=== PATIENT | male | born 1955 | race Caucasian/White ===

== ENCOUNTER 2025-08-27 08:20 | Inpatient (IN) ==
--- NOTE | 2025-08-02 11:31 | PAT Medication Instructions ---
Medication Instructions Date of Service August 02, 2025 Home Medications ascorbic acid (vitamin C) 1,000 mg tablet (Vitamin C) 1,000 mg PO QAM celecoxib 200 mg capsule (Celebrex) 200 mg PO BID PRN Pain cholecalciferol (vitamin D3) 125 mcg (5,000 unit) tablet (Vitamin D3) 125 mcg PO QAM gabapentin 300 mg capsule 600 mg PO HS omeprazole 20 mg delayed release,disintegrating tablet 20 mg PO QAM simvastatin 20 mg tablet 20 mg PO QAM ASK your surgeon for instructions celecoxib 200 mg capsule (Celebrex) 200 mg PO BID PRN Pain DO NOT take the morning of surgery ascorbic acid (vitamin C) 1,000 mg tablet (Vitamin C) 1,000 mg PO QAM cholecalciferol (vitamin D3) 125 mcg (5,000 unit) tablet (Vitamin D3) 125 mcg PO QAM Take morning of surgery With a small sip of water, OTHERWISE NOTHING TO EAT OR DRINK AFTER MIDNIGHT: omeprazole 20 mg delayed release,disintegrating tablet 20 mg PO QAM simvastatin 20 mg tablet 20 mg PO QAM Take evening before surgery gabapentin 300 mg capsule 600 mg PO HS Other Notes If you have any questions please call us at [phone] or [phone] or [phone] or [phone]
--- NOTE | 2025-08-07 10:27 | Anesthesiology Consultation ---
Date of Service August 07, 2025 Assessment & Plan (1) Encounter for pre-operative examination: - surgeon ordered medical clearance 08/19/25: "...lumbar decompression and fusion...woke up with a scratchy throat...denies cough, fever...uri-covid/flu testing in office today negative...cleared for surgery..." I will contact patient 08/26 to check on symptom status. - PONV: patient reports vomiting for several days after lumbar surgery, no post-op nausea and vomiting after [facility] 2023 shoulder surgery. - 2023 right shoulder arthroscopy received Zofran: LMA. - awaiting surgeon ordered medical clearance, Nichole Weber [place] KATELYNN 08/19/25. Patient requests PAT testing be faxed to Dr. Dariel Warner, pain management in [place]. Chart Review Chart Review: Patient seen in Pre Admission Testing Teaching & Discussion Pre-Anesthesia Teaching/Discussion Notes: Instructed NPO after midnight before surgery, except medications with 15 cc of water. Medication instructions provided according to the PAT guidelines. History Surgery Operation Date: 08/27/25 07:45 Proposed Procedures p L2-L3 Decompression, L3-S1 Revision Fusion, L2-S1 Fusion - Jono León, Height/Weight Height: 5 ft 7 in Weight: 108.3 kg Allergies Allergy/AdvReac Type Severity Reaction Status Date / Time amoxicillin Allergy Rash Verified 08/02/25 07:36 morphine AdvReac Mild I GOT REAL Verified 08/02/25 07:36 HOT Medications Home Medications Medication Instructions Recorded Confirmed Last Taken ascorbic acid (vitamin C) 1,000 mg 1,000 mg PO QAM 08/02/25 08/02/25 Unknown tablet (Vitamin C) celecoxib 200 mg capsule (Celebrex) 200 mg PO BID PRN Pain 08/02/25 08/02/25 Unknown cholecalciferol (vitamin D3) 125 125 mcg PO QAM 08/02/25 08/02/25 Unknown mcg (5,000 unit) tablet (Vitamin D3) gabapentin 300 mg capsule 600 mg PO HS 08/02/25 08/02/25 Unknown omeprazole 20 mg delayed 20 mg PO QAM 08/02/25 08/02/25 Unknown release,disintegrating tablet simvastatin 20 mg tablet 20 mg PO QAM 08/02/25 08/02/25 Unknown Past Medical History Medical History (Updated 08/07/25 @ 11:15 by Kirstie Haddad PA-C) Heartburn controlled, stable per pt History of blood transfusion (~1982) GI bleed during excision of large colon polyp HLD (hyperlipidemia) Hx of colonic polyp Hx of melanoma of skin Nausea and vomiting after administration of anesthetic agent Sleep-disordered breathing snoring and witnessed apneas per -no previous sleep studies Patient denies h/o stroke, seizures, heart attack, heart failure, DM, HTN, or blood clots/DVTs. 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 History of intestinal surgery to remove large colon polyp History of total right hip arthroplasty Hx of colonoscopy (2020) Hx of laminectomy L3-S1, ~2020 or 2021 Hx of melanoma excision side of face Hx of repair of rotator cuff right x2 Past Anesthesia History No Hx of Anesthesia Complications and No Family Hx of Anesthesia Complications History of PONV No Hx of Motion Sickness and History of PONV Social History Smoking Status: Former smoker Do You Dip or Chew Tobacco: Yes (advised) Smoking End Date: 50 years ago Hx Alcohol Use: Yes alcohol intake frequency: holidays/special occasions only Hx Substance Use: No substance use type: does not use Review of Systems Patient denies chest pain, shortness of breath, dyspnea on exertion, fever, chills, cough, wheezing, or palpitations. Physical Exam Vital Signs Vitals BP 112/71 P 95 TEMP 97.6 SP02 95% on RA RESP 18 Physical Patient resting comfortably in chair in no acute distress, alert and oriented, responding appropriately throughout visit Full cervical extension range of motion without pain TMD 3 finger breadths Mallampati Score 3 Dentition: front upper crowns, denies chipped or loose teeth, caps, implants or bridges Lungs: normal respiratory effort. Good air movement, clear throughout to auscultation, no adventitious breath sounds Cardiac: regular rate and rhythm, no murmurs noted Carotid arteries: negative bruit bilat Lab Results Anesthesia Preop Results Results Anesthesia Widget: WBC 10.53 K/ul (4.8-10.8) 08/07/25 Hgb 15.7 g/dl (14.0-18.0) 08/07/25 Hct 45.7 % (42.0-52.0) 08/07/25 Plt 201 K/uL (130-400) 08/07/25 Na 136 mmol/L (136-145) 08/07/25 K 3.7 mmol/L (3.5-5.1) 08/07/25 Cl 106 mmol/L (98-107) 08/07/25 CO2 24 mmol/L (21-32) 08/07/25 BUN 18 mg/dl (6-23) 08/07/25 Creat 0.96 mg/dl (0.6-1.4) 08/07/25 Glucose Level 120 mg/dl (70-99(Fasting)) H 08/07/25 PT 11.0 Seconds (9.0-12.0) 08/07/25 PTT 29 Seconds (21-31) 08/07/25 INR 1.0 (0.9-1.1) 08/07/25 Urine Color Dark Yellow 08/07/25 Urine Appearance Clear (Clear) 08/07/25 Urine pH 5.5 (4.5-7.5) 08/07/25 Urine Specific [place] 1.039 (1.000-1.030) H 08/07/25 Urine Protein Trace (Negative) H 08/07/25 Urine Glucose (UA) Negative (Negative) 08/07/25 Urine Ketones 1+ (Negative) H 08/07/25 Urine Blood Negative (Negative) 08/07/25 Urine Nitrite Negative (Negative) 08/07/25 Urine Bilirubin Negative (Negative) 08/07/25 Urine Urobilinogen Negative (Negative) 08/07/25 Urine Leukocyte Esterase Trace (Negative) H 08/07/25 Urine WBC (Auto) 0-5 /hpf (0-5) 08/07/25 Urine RBC (Auto) 6-10 /hpf (0-2) H 08/07/25 Urine Hyaline Casts (Auto) 6-10 /lpf (0-2) H 08/07/25 Urine Epithelial Cells (Auto) 0-2 /hpf (0-2) 08/07/25 Urine Bacteria (Auto) None Seen (None Seen) 08/07/25 Blood Type O Positive 08/07/25 Antibody Screen NEGATIVE 08/07/25 Testing Electrocardiogram Date: 08/07/25 NSR, rate 92 bpm Left anterior fascicular block Incomplete RBBB Chest X-Ray Date: 08/07/25 Heart size and pulmonary vasculature are normal. No consolidation or pleural effusion. IMPRESSION: No acute findings.
[2025-08-27] MEDS: LR 15ML/HR IV SCH (08:52)
[2025-08-27] MEDS: CeleBREX 200 MG CAP PO SCH ×2 (09:12→09:14)
[2025-08-27] MEDS: ACETAMINOPHEN 500 MG TAB PO SCH ×2 (09:12→09:14)
[2025-08-27] MEDS: GABAPENTIN 300 MG CAP PO SCH ×3 (09:12→21:12)
[2025-08-27] MEDS: LR 60ML/HR IV SCH ×2 (09:13→09:15)
[2025-08-27] MEDS ORDERED: DEXAMETHASONE SOD INJ 4 MG/ML VIAL ONE (09:29)
[2025-08-27] MEDS ORDERED: LIDOCAINE 2% 2 ML VIAL/AMP(20MG/ML) INFIL ONE (09:29)
[2025-08-27] MEDS ORDERED: KETAMINE HCL 10MG/ML SYR ONE (09:29)
[2025-08-27] MEDS ORDERED: MIDAZOLAM HCL 1 MG/ML 2ML VIAL ONE (09:29)
[2025-08-27] MEDS ORDERED: SUGAMMADEX SODIUM 200 MG/2 ML VIAL IV ONE (09:29)
[2025-08-27] MEDS ORDERED: PROPOFOL IV EMULSION 10 MG/ML 20 ML VIAL IV ONE ×4 (09:29→13:22)
[2025-08-27] MEDS ORDERED: ONDANSETRON INJ 2 MG/ML 2 ML VIAL ONE ×2 (09:29→13:52)
[2025-08-27] MEDS: SCOPOLAMINE 1 MG/72 HR TDSY PATCH TD ONE ×2 (10:15→16:29)
[2025-08-27] MEDS ORDERED: ATROPINE SULFATE 0.1 MG/ML 10ML SYR IV PRN (10:19)
--- NOTE | 2025-08-27 10:19 | Anesthesiology Consultation ---
Date of Service August 27, 2025 Assessment & Plan Chart Review Chart Review: Acceptable Risk for Surgery and Patient NOT seen in Pre Admission Testing Consults Requested none ASA ASA2 Proposed Anesthesia Anesthesia Type: General Risk / Benefits Reviewed With: PT / POA / Parent / Guardian, Accepts Plan and Informed Consent Obtained History Surgery Operation Date: 08/27/25 10:05 Proposed Procedures p L2-L3 Decompression, L2-S1 Fusion, L3-S1 Fusion Revision - Jono León, Height/Weight Height: 5 ft 7 in Weight: 106.7 kg Allergies Allergy/AdvReac Type Severity Reaction Status Date / Time amoxicillin Allergy Rash Verified 08/27/25 08:22 morphine AdvReac Mild I GOT REAL Verified 08/27/25 08:22 HOT Medications Home Medications Medication Instructions Recorded Confirmed Last Taken ascorbic acid (vitamin C) 1,000 mg 1,000 mg PO QAM 08/02/25 08/27/25 08/26/25 07:00 tablet (Vitamin C) celecoxib 200 mg capsule (Celebrex) 200 mg PO BID PRN Pain 08/02/25 08/27/25 08/26/25 07:00 cholecalciferol (vitamin D3) 125 125 mcg PO QAM 08/02/25 08/27/25 08/26/25 07:00 mcg (5,000 unit) tablet (Vitamin D3) gabapentin 300 mg capsule 600 mg PO HS 08/02/25 08/27/25 08/26/25 21:00 omeprazole 20 mg delayed 20 mg PO QAM 08/02/25 08/27/25 08/27/25 05:30 release,disintegrating tablet simvastatin 20 mg tablet 20 mg PO QAM 08/02/25 08/27/25 08/27/25 05:30 benzonatate 200 mg PO TID 08/27/25 08/27/25 08/26/25 07:00 doxycycline hyclate 100 mg PO BID Precaution per 08/27/25 08/27/25 08/26/25 07:00 patient Active Medications Generic Name Dose Route Start Last Admin Trade Name Freq PRN Reason Stop Dose Admin Acetaminophen 1,000 mg 08/27/25 06:00 08/27/25 09:14 Acetaminophen 500 Mg Tab PO 08/27/25 18:00 1,000 mg PREOP SHARIFA Administration Celecoxib 200 mg 08/27/25 06:00 08/27/25 09:14 Celebrex 200 Mg Cap PO 08/27/25 18:00 200 mg PREOP SHARIFA Administration Gabapentin 300 mg 08/27/25 06:00 08/27/25 09:15 Gabapentin 300 Mg Cap PO 08/27/25 18:00 300 mg PREOP SHARIFA Administration Lactated Ringer's 1,000 mls @ 15 mls/hr 08/28/25 06:00 08/27/25 08:52 Lr IV 08/29/25 05:59 15 mls/hr .Q24H SHARIFA Administration Lactated Ringer's 1,000 mls @ 60 mls/hr 08/27/25 06:00 08/27/25 09:15 Lr IV 08/27/25 22:39 Not Given .[id number] SHARIFA NPO Date Last Intake of Fluids: 08/27/25 Time Last Intake of Fluids: 05:30 Last Intake of Fluids Comment: Sip with med Date Last Intake of Solids: 08/26/25 Past Medical History Medical History (Updated 08/07/25 @ 11:15 by Kirstie Haddad PA-C) Sleep-disordered breathing snoring and witnessed apneas per -no previous sleep studies History of blood transfusion (~1982) GI bleed during excision of large colon polyp Hx of colonic polyp Hx of melanoma of skin Heartburn controlled, stable per pt HLD (hyperlipidemia) Nausea and vomiting after administration of anesthetic agent Past Surgical History Surgical History (Updated 08/07/25 @ 11:14 by Kirstie Haddad PA-C) Hx of laminectomy L3-S1, ~2020 or 2021 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 right hip arthroplasty Hx of repair of rotator cuff right x2 History of intestinal surgery to remove large colon polyp History of esophagogastroduodenoscopy (EGD) Hx of colonoscopy (2020) Hx of melanoma excision side of face Past Anesthesia History No Hx of Anesthesia Complications and No Family Hx of Anesthesia Complications History of PONV No Hx of Motion Sickness, Other and History of PONV Social History Smoking Status: Former smoker Do You Dip or Chew Tobacco: Yes (advised) Smoking End Date: 50 years ago Hx Alcohol Use: Yes alcohol intake frequency: holidays/special occasions only Hx Substance Use: No substance use type: does not use Review of Systems ROS Unobtainable: All systems reviewed & are unremarkable except as noted in HPI & below Physical Exam Vital Signs Last Vital Signs Temp 36.6 C 08/27/25 08:35 Pulse 74 08/27/25 08:35 Resp 17 08/27/25 08:35 BP 144/95 H 08/27/25 08:35 Pulse Ox 95 08/27/25 08:35 O2 Del Method Room Air 08/27/25 08:35 ENMT Mouth: no TMJ abnormality Thyromental Distance: > or= 3.5 Finger Breadths Mallampati Class: II Neck normal visual inspection and trachea midline; neck extension not limited Respiratory normal respiratory effort Auscultation: lungs clear to auscultation bilaterally Cardiovascular Rate/Rhythm: regular rate and regular rhythm Heart Sounds: no murmur Musculoskeletal Spine: normal cervical ROM Extremities: full ROM of extremities Neurologic moves all extremities Psychiatric Orientation: alert and oriented x 3 Testing Laboratory Results Blood Type O Positive 08/27/25 08:37 Antibody Screen NEGATIVE 08/27/25 08:37
--- NOTE | 2025-08-27 10:29 | History & Physical Bridge Note ---
Date of Service August 27, 2025 History & Physical Bridge Note I have examined the patient, reviewed the History & Physical and in the interval since the performance of the History & Physical I have noted the following changes of clinical significance: no changes noted
--- NOTE | 2025-08-27 10:30 | History & Physical Report ---
Date of Service August 27, 2025 Assessment & Plan (1) Multilevel lumbosacral spondylosis with radiculopathy: Plan: L2-L3 decompression revision fusion L3-S1 fusion L2-S1 History of Present Illness Chief Complaint: Back and leg pain Primary Care Provider: Alyson Weber This is a 70-year-old male who presents with chronic persistent back and leg pain after failing course of nonoperative care is here for surgical invention. Allergies Allergy/AdvReac Type Severity Reaction Status Date / Time amoxicillin Allergy Rash Verified 08/27/25 08:22 morphine AdvReac Mild I GOT REAL Verified 08/27/25 08:22 HOT Home Medications Medication Instructions Recorded Confirmed Type ascorbic acid (vitamin C) 1,000 mg 1,000 mg PO QAM 08/02/25 08/27/25 History tablet (Vitamin C) celecoxib 200 mg capsule (Celebrex) 200 mg PO BID PRN Pain 08/02/25 08/27/25 History cholecalciferol (vitamin D3) 125 125 mcg PO QAM 08/02/25 08/27/25 History mcg (5,000 unit) tablet (Vitamin D3) gabapentin 300 mg capsule 600 mg PO HS 08/02/25 08/27/25 History omeprazole 20 mg delayed 20 mg PO QAM 08/02/25 08/27/25 History release,disintegrating tablet simvastatin 20 mg tablet 20 mg PO QAM 08/02/25 08/27/25 History benzonatate 200 mg PO TID 08/27/25 08/27/25 History doxycycline hyclate 100 mg PO BID Precaution per 08/27/25 08/27/25 History patient Past Med/Surg History Problem List (Updated 08/27/25 @ 10:29 by Jono León DO) Multilevel lumbosacral spondylosis with radiculopathy Encounter for pre-operative examination Medical History (Updated 08/27/25 @ 10:29 by Jono León DO) Sleep-disordered breathing snoring and witnessed apneas per -no previous sleep studies History of blood transfusion (~1982) GI bleed during excision of large colon polyp Hx of colonic polyp Hx of melanoma of skin Heartburn controlled, stable per pt HLD (hyperlipidemia) Nausea and vomiting after administration of anesthetic agent Surgical History (Updated 08/07/25 @ 11:14 by Kirstie Haddad PA-C) Hx of laminectomy L3-S1, ~2020 or 2021 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 right hip arthroplasty Hx of repair of rotator cuff right x2 History of intestinal surgery to remove large colon polyp History of esophagogastroduodenoscopy (EGD) Hx of colonoscopy (2020) Hx of melanoma excision side of face Social History Smoking Status: Former smoker Smoking End Date: 50 years ago; Second Hand Exposure: No; Do You Dip or Chew Tobacco: Yes (advised); Tobacco Cessation Education Requested by Patient: No Hx Alcohol Use: Yes Hx Substance Use: No Preferred Language: Mongolian Communication Ability: Effective Core Inspector Required: No Beliefs That Will Affect Care: None Current Living Situation: Spouse Other Information That Helps Us Care for You: No Feels Safe at Home: Yes Safety Concerns: Feels Safe At This Time Assistive Devices: None Physical Exam Physical Exam: Patient alert and oriented Heart regular rhythm Lungs clear Results & Data Results & Data Vital Signs (Past 12 Hours) Vital Signs Temp Pulse Resp BP Pulse Ox O2 Del Method 08/27/25 08:35 36.6 C 74 17 144/95 H 95 Room Air
[2025-08-27] MEDS ORDERED: Nursing to Pharmacy Communication SCH (10:45)
[2025-08-27] MEDS: BUPIVACAINE/EPINEPHRINE 0.25% 1:200,000 30 ML VIAL ONE (11:19)
[2025-08-27] MEDS ORDERED: ROCURONIUM BROMIDE 10 MG/ML 5 ML VIAL IV ONE ×2 (11:19→13:11)
[2025-08-27] MEDS: ceFAZolin 330 MG/ML 1 GM VIAL ONE (11:20)
[2025-08-27] MEDS ORDERED: PHENYLEPHRINE 100MCG/ML 5ML SYR ONE ×2 (12:26)
[2025-08-27] MEDS ORDERED: GLYCOPYRROLATE 0.2 MG/ML VIAL ONE (12:49)
--- NOTE | 2025-08-27 14:02 | Operative Report ---
Post Operative Report Pre & Post Diagnosis Operation Date: 08/27/25 10:05 Pre-Op Diagnosis: #1 lumbar spondylosis with radiculopathy #2 lumbar spinal stenosis Post-Op Diagnosis: Same I identified the patient and participated in the time-out.: Yes Procedure Operation Date: 08/27/25 10:05 Actual Procedures #1 revision decompression with bilateral medial facetectomies and foraminotomies L2-L3, L3-L4, L4-L5 L5-S1. #2 posterior spinal fusion L2-S1. #3 placement of posterior segmental instrumentation using camber L2-S1. #4 interbody fusion L3- L4, L4-L5 L5-S1. #5 placement of Spira 12 x 26 mm at L3-L4, 13 x 26 mm at L4-5 and 12 x 26 mm at L5-S1. #6 placement of Proteus combined with Koros bone graft in the posterior lateral gutters and os design in the interbody space. Surgeon Jono León, DO Acting Professor Janice Elizabeth Estimated Blood Loss 600 Findings See Below The patient is 5 foot 7 weighing over 106 kg with a BMI in excess of 36. The patient's body habitus, blood loss and significant epidural scarring at all levels created significant technical difficulty prolonging this procedure at least 50%. I am recommending a modifier 22. Specimens None Indications This is a 70-year-old male presents publish diagnosis of failing since course of nonoperative care is here for surgical invention. Description of Procedure Patient was met with identified inform consent obtained. Patient was then taken to the operative suite underwent and patient placed in a prone position on the Andrzej table atop the Shola frame. All bony prominences well-padded eyes inspected to ensure no external pressure placed upon them. This point lumbar spine was prepped and draped in normal sterile fashion. Sharp dissection with the assistance of Bovie cautery performed down to and exposing the remaining lamina and transverse processes of L2 L3-L4-L5 and sacral ala bilaterally. From a caudal to cephalad fashion revision laminectomy with foraminotomies was performed of L5 L4 L3 and partially at L2. Significant epidural scarring was noted at every level prolonging our decompression and access to the subarticular and foraminal regions for complete decompression. After this was complete pedicle screws were placed at L2 L3-L4-L5 and S1 levels bilaterally with assistance of fluoroscopy and appropriate size you contoured and placed. Bilateral transforaminal approach on the right and complete discectomy of L5-S1 was performed endplates created to subcortical bleeding bone and a 12 x 26 mm Spira cage tapped into position. Then proceeded to the L4-L5 region. Again by way of a transforaminal approach and a right complete discectomy was performed endplates created to subcortical bony bone and a 13 x 26 mm Spira cage tapped into position. Lastly approached L3-L4 and by way transforaminal approach and right complete discectomy was performed. Endplates guided to subcortical and bone. A 12 x 26 mm Spira cage was then tapped in position. Please note all cages were packed with os design bone graft. The rods were then locked into position bilaterally. The transverse processes of L2-L3 L4-5 and sacral ala burred to subcortical bleeding bone. Proteus combined with Koros bone graft was then placed in the posterior gutters. 15 round KWAME drain inserted. The incision was then closed with 1 Vicryl and fascia 2-0 Vicryl subcutaneously and 4-0 Monocryl for final skin closure. Steri-Strips sterile dressing placed. Patient waken taken PACU stable condition. Please note Janice Elizabeth was present throughout the entire procedure and brought the patient positioning complex portions of the surgery and final skin closure. I attest to the content of the Intraoperative Record and any orders documented therein. Any exceptions are noted below.
[2025-08-27] MEDS: FLOSEAL HEMOSTATIC MATRIX 10ML TOP ONE (14:07)
[2025-08-27] MEDS ORDERED: ALBUTEROL HFA 8 GM INHALER INH ONE (14:17)
--- NOTE | 2025-08-27 14:29 | Fluoroscopy Report ---
INTRAOPERATIVE RADIOGRAPHS CLINICAL HISTORY: Lumbar spinal fusion. Fluoro time: 37 seconds Ka,r: 42.74 mGy FINDINGS: 4 spot fluoroscopic views of the lumbar spine are presented. There has been discectomy at L 3-L4, L4-L5, and L5-S1 with laminectomy and posterior fusion at L2-S1. Interpedicular screws are pres ent at all levels. The orthopedic hardware appears intact. IMPRESSION: Intraoperative images from multilevel spinal fusion as above. Electronically signed by: Dave Lombardo M.D. 08/27/2025 2:27 PM
[2025-08-27] MEDS: HYDROmorphone INJ 1 MG/ML SYRINGE IV PRN (15:30)
--- NOTE | 2025-08-27 15:50 | Anesthesiology Progress Note ---
Date of Service August 27, 2025 Anesthesia Post Procedure Vital Signs Vital Signs: Temp Pulse Resp BP Pulse Ox O2 Del Method O2 Flow Rate 08/27/25 15:40 87 21 107/88 93 Nasal Cannula 3 08/27/25 15:30 82 17 104/70 97 Nasal Cannula 3 08/27/25 15:20 82 18 121/83 91 Nasal Cannula 3 08/27/25 15:10 36.4 C L 86 16 128/74 93 Nasal Cannula 3 08/27/25 15:00 84 10 L 130/79 94 Nasal Cannula 3 08/27/25 14:50 88 17 113/81 95 Nasal Cannula 3 08/27/25 14:40 91 H 15 119/79 98 Room Air 08/27/25 14:30 98 H 20 127/71 96 Nasal Cannula 9 08/27/25 14:24 36.0 C L 106 H 17 137/95 90 Oxymask 9 08/27/25 08:35 36.6 C 74 17 144/95 H 95 Room Air Pain Intensity Back: Pain Intensity: 6 Transfer of Care Handoff Completed per policy Notes Mental Status: alert / awake / arousable Patient Amnestic to Procedure: Yes Nausea / Vomiting: adequately controlled Pain: adequately controlled Airway Patency, RR, SpO2: stable & adequate BP & HR: stable & adequate Hydration State: stable & adequate Anesthetic Complications: no major complications apparent
[2025-08-27] MEDS ORDERED: ACETAMINOPHEN 500 MG TAB PO PRN (16:20)
[2025-08-27] MEDS ORDERED: ACETAMINOPHEN 1,000 MG/100 ML VIAL IV PRN (16:20)
[2025-08-27] MEDS ORDERED: diphenhydrAMINE Capsule 25 MG CAP PO PRN (16:20)
[2025-08-27] MEDS ORDERED: ONDANSETRON INJ 2 MG/ML 2 ML VIAL IV PRN (16:20)
[2025-08-27] MEDS ORDERED: HYDROmorphone INJ 1 MG/ML SYRINGE IV PRN (16:20)
[2025-08-27] MEDS ORDERED: DO NOT ADMINISTER PNEUMOCOCCAL VACCINE PRN (16:20)
[2025-08-27] MEDS ORDERED: ONDANSETRON 4 MG OD TAB PO PRN (16:20)
[2025-08-27] MEDS ORDERED: LORazepam 0.5 MG TAB PO PRN (16:20)
[2025-08-27] MEDS ORDERED: DO NOT ADMINISTER FLU VACCINE PRN (16:20)
[2025-08-27] MEDS ORDERED: HYDROmorphone INJ 0.5 MG/0.5 ML SYR IV PRN (16:20)
[2025-08-27] MEDS ORDERED: MAGNESIUM HYDROXIDE SUSP 30 ML UDC PO PRN (16:20)
[2025-08-27] MEDS ORDERED: METOCLOPRAMIDE HCL INJ 5 MG/ML 2 ML VIAL IV PRN (16:20)
[2025-08-27] MEDS ORDERED: NALOXONE HCL 0.4 MG/1 ML VIAL/CARP IV PRN (16:20)
[2025-08-27] MEDS ORDERED: ALUMINUM/MAGNESIUM SUSP 30 ML UDC PO PRN (16:20)
[2025-08-27] MEDS ORDERED: SOD PHOSPHATE/SOD BIPHOSPHATE ENEMA 132 ML BTL PR PRN (16:20)
[2025-08-27] MEDS ORDERED: PROMETHAZINE 12.5 MG/50.5 ML BAG IV PRN (16:20)
[2025-08-27] MEDS ORDERED: LORazepam Inj 0.5 MG in SYRINGE 0.25 ML IV PRN (16:20)
[2025-08-27] MEDS: CHECK SCOPOLAMINE PATCH PLACEMENT SCH (16:30)
[2025-08-27] MEDS: SODIUM CHLORIDE 0.9% 1,000 ML IV SCH (16:31)
--- NOTE | 2025-08-27 17:00 | Internal Medicine Consult Note ---
Date of Consultation August 27, 2025 Assessment & Plan (1) Multilevel lumbosacral spondylosis with radiculopathy: Lumbar spondylosis with radiculopathy Lumbar spinal stenosis S/P revision decompression/fusion surgery of lumbar spine by Dr. 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 León Attending Physician: Jono León, DO History of Present Illness Patient is a 71-year-old male with history of hyperlipidemia, obesity, lumbar spinal stenosis, vitamin D deficiency, GERD, former smoker and other medical problems was consulted for postop medical management. Patient underwent revision of decompression, fusion surgery of lumbar spine for lumbar spondylosis with radiculopathy and spinal stenosis by Dr. León on 08/27/2025. Patient is mildly drowsy post operatively. He denies any pain at surgical site. Also denies any chest pain, dyspnea, dizziness, change in vision, nausea, vomiting, abdominal pain, dysuria. Allergies Allergy/AdvReac Type Severity Reaction Status Date / Time amoxicillin Allergy Rash Verified 08/27/25 08:22 morphine AdvReac Mild I GOT REAL Verified 08/27/25 08:22 HOT Home Medications Medication Instructions Recorded Confirmed Type ascorbic acid (vitamin C) 1,000 mg 1,000 mg PO QAM 08/02/25 08/27/25 History tablet (Vitamin C) celecoxib 200 mg capsule (Celebrex) 200 mg PO BID PRN Pain 08/02/25 08/27/25 History cholecalciferol (vitamin D3) 125 125 mcg PO QAM 08/02/25 08/27/25 History mcg (5,000 unit) tablet (Vitamin D3) gabapentin 300 mg capsule 600 mg PO HS 08/02/25 08/27/25 History omeprazole 20 mg delayed 20 mg PO QAM 08/02/25 08/27/25 History release,disintegrating tablet simvastatin 20 mg tablet 20 mg PO QAM 08/02/25 08/27/25 History benzonatate 200 mg PO TID 08/27/25 08/27/25 History doxycycline hyclate 100 mg PO BID Precaution per 08/27/25 08/27/25 History patient Patient History Medical History Sleep-disordered breathing snoring and witnessed apneas per -no previous sleep studies History of blood transfusion (~1982) GI bleed during excision of large colon polyp Hx of colonic polyp Hx of melanoma of skin Heartburn controlled, stable per pt HLD (hyperlipidemia) Nausea and vomiting after administration of anesthetic agent Surgical History Hx of laminectomy L3-S1, ~2020 or 2021 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 right hip arthroplasty Hx of repair of rotator cuff right x2 History of intestinal surgery to remove large colon polyp History of esophagogastroduodenoscopy (EGD) Hx of colonoscopy (2020) Hx of melanoma excision side of face Social History Smoking Status: Former smoker Smoking End Date: 50 years ago; Second Hand Exposure: No; Do You Dip or Chew Tobacco: Yes (advised); Tobacco Cessation Education Requested by Patient: No Hx Alcohol Use: Yes Hx Substance Use: No Preferred Language: Sammarinese Communication Ability: Effective 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: No Beliefs That Will Affect Care: None Current Living Situation: Spouse Other Information That Helps Us Care for You: No Feels Safe at Home: Yes Safety Concerns: Feels Safe At This Time Assistive Devices: None Review of Systems Review of Systems: All systems reviewed & are unremarkable except as noted in Subjective Physical Exam Physical Exam: Physical Exam: Vitals signs as noted above General Appearance:Morbidly obese, no apparent distress Head: normocephalic, Atraumatic Eyes: normal inspection, EOMI Neck: supple, Trachea midline Respiratory/Chest: Normal breath sounds, CTA, No accessory muscle use Cardiovascular: S1, S2, No murmur Abdomen/GI:Soft, Non tender, Bowel sounds present Back: +Post surgical dressing,+drain Extremities/Musculoskeletal:normal inspection, no edema Neurologic/Psych:AAOX3, grossly no focal neurological deficits Skin: normal color, warm Results & Data Vital Signs (Past 12 Hours) Vital Signs Temp Pulse Pulse Resp BP Pulse Ox O2 Del Method 08/27/25 16:56 36.3 C L 97 H 16 112/76 97 Nasal Cannula 08/27/25 16:20 36.3 C L 91 H 16 120/82 91 Nasal Cannula 08/27/25 16:00 93 H 15 110/71 97 Nasal Cannula 08/27/25 15:50 85 14 120/74 95 Nasal Cannula 08/27/25 15:40 87 21 107/88 93 Nasal Cannula 08/27/25 15:30 82 17 104/70 97 Nasal Cannula 08/27/25 15:20 82 18 121/83 91 Nasal Cannula 08/27/25 15:10 36.4 C L 86 16 128/74 93 Nasal Cannula 08/27/25 15:00 84 10 L 130/79 94 Nasal Cannula 08/27/25 14:50 88 17 113/81 95 Nasal Cannula 08/27/25 14:40 91 H 15 119/79 98 Room Air 08/27/25 14:30 98 H 20 127/71 96 Nasal Cannula 08/27/25 14:24 36.0 C L 106 H 17 137/95 90 Oxymask 08/27/25 08:35 36.6 C 74 17 144/95 H 95 Room Air O2 Flow Rate 08/27/25 16:56 2 08/27/25 16:20 2 08/27/25 16:00 3 08/27/25 15:50 3 08/27/25 15:40 3 08/27/25 15:30 3 08/27/25 15:20 3 08/27/25 15:10 3 08/27/25 15:00 3 08/27/25 14:50 3 08/27/25 14:40 08/27/25 14:30 9 08/27/25 14:24 9 08/27/25 08:35 Diagnostic Findings --Lumbar Spinal X ray: 4 spot fluoroscopic views of the lumbar spine are presented. There has been discectomy at L3-L4, L4-L5, and L5-S1 with laminectomy and posterior fusion at L2-S1. Interpedicular screws are present at all levels. The orthopedic hardware appears intact.
[2025-08-27] MEDS: BENZONATATE 100 MG CAPSULE PO SCH (21:11)
[2025-08-27] MEDS: DOCUSATE SODIUM/SENNA 50/8.6MG TAB PO SCH (21:11)
[2025-08-28] MEDS: COUGH DROP (SUGAR FREE) LOZ 24 LOZ/1 BOX BUCCAL PRN (04:21)
[2025-08-28] MEDS: COUGH DROP (SUGAR FREE) LOZ 24 LOZ/1 BOX BUCCAL ONE (04:33)
[2025-08-28] MEDS: POLYETHYLENE (MIRALAX) 17 GM PACK PO SCH (05:50)
[2025-08-28 07:44] LABS: Hematocrit (blood only) 34.2 % (42.0-52.0); Hemoglobin 11.9 g/dl (14.0-18.0); Immature Granulocytes # (auto) 0.09 K/uL (0.01-0.20); Immature Granulocytes % (auto) 0.5 %; Mean Corpuscular Hemoglobin 32.8 pg (25.0-34.0); Mean Corpuscular Volume 94.2 fL (80.0-100.0); Platelet Count 190 K/uL (130-400); RDW Standard Deviation 41.4 fL (36.4-46.3); Red Blood Count 3.63 M/uL (4.70-6.10); White Blood Count 16.91 K/ul (4.8-10.8)
[2025-08-28 08:02] LABS: Anion Gap 4.0 (3-11); Blood Urea Nitrogen 15.0 mg/dl (6-23); Calcium 8.6 mg/dl (8.6-10.3); Carbon Dioxide 28.0 mmol/L (21-32); Chloride 107.0 mmol/L (98-107); Creatinine Clr Calc Pharmacy 86.4 ml/min; Glucose 115.0 mg/dl (70-99(Fasting)); Potassium 4.5 mmol/L (3.5-5.1); Sodium 139.0 mmol/L (136-145)
[2025-08-28] MEDS: SIMVASTATIN 20 MG TAB PO SCH (08:08)
[2025-08-28] MEDS: CHOLECALCIFEROL 125 MCG (5,000 UNITS) TAB PO SCH (08:08)
[2025-08-28] MEDS: ASCORBIC ACID 500 MG TAB PO SCH (08:08)
[2025-08-28] MEDS: dexAMETHasone 6 MG in SYRINGE 0 ML IV SCH (08:09)
--- NOTE | 2025-08-28 09:50 | Orthopedic Progress Note ---
Date of Service August 28, 2025 Assessment & Plan (1) Multilevel lumbosacral spondylosis with radiculopathy: Plan: At this time we will continue physical therapy monitor his KWAME output over the discharge home in next few days. Admission and Anticipated Discharge Date Admission Date: August 27, 2025 Subjective Back pain controlled leg pain markedly improved Physical Exam Physical Exam: Patient is in the chair at the bedside. Is comfortable. Discussed active testing. Results & Data Vital Signs (Past 12 Hours) Vital Signs Temp Pulse Pulse Resp BP BP Pulse Ox 08/28/25 08:39 18 119/72 93 08/28/25 07:20 36.6 C 104 H 16 124/77 92 08/28/25 04:15 92 H 101 H 96 08/28/25 04:00 36.3 C L 104 H 20 118/78 88 L 08/27/25 23:59 36.9 C 104 H 20 103/64 95 O2 Del Method 08/28/25 08:39 Room Air 08/28/25 07:20 Nasal Cannula 08/28/25 04:15 Nasal Cannula 08/28/25 04:00 Room Air 08/27/25 23:59 Room Air Queries Orthopedic Spine Acute Posthemorrhagic Anemia: Yes Obesity: Yes
--- NOTE | 2025-08-28 14:55 | Hospitalist Progress Note ---
Date of Service August 28, 2025 Assessment & Plan (1) Multilevel lumbosacral spondylosis with radiculopathy: Plan: Lumbar spondylosis with radiculopathy Lumbar spinal stenosis S/P revision decompression/fusion surgery of lumbar spine by Dr. 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 DVT Px: SCDs per surgery CODE STATUS Full code Admission and Anticipated Discharge Date Admission Date: August 27, 2025 Subjective Patient is seen and examined at bedside Sitting in chair during my encounter Had PT evaluation earlier today Admits to have back pain 4-5/10 at surgical site Offers no other complaints Saturating well on room air Denies any chest pain, dyspnea, nausea, vomiting, abdominal pain Review of Systems Review of Systems: All systems reviewed & are unremarkable except as noted in Subjective Physical Exam Physical Exam: Physical Exam: Vitals signs as noted above General Appearance:Morbidly obese, no apparent distress Head: normocephalic, Atraumatic Eyes: normal inspection, EOMI Neck: supple, Trachea midline Respiratory/Chest: Normal breath sounds, CTA, No accessory muscle use Cardiovascular: S1, S2, No murmur Abdomen/GI:Soft, Non tender, Bowel sounds present Back: +Post surgical dressing,+drain Extremities/Musculoskeletal:normal inspection, no edema Neurologic/Psych:AAOX3, grossly no focal neurological deficits Skin: normal color, warm Results & Data Results & Data Vital Signs (Past 12 Hours) Vital Signs Temp Pulse Pulse Resp BP BP Pulse Ox 08/28/25 11:35 36.7 C 94 H 18 123/72 95 08/28/25 08:39 18 119/72 93 08/28/25 07:35 08/28/25 07:20 36.6 C 104 H 16 124/77 92 08/28/25 04:15 92 H 101 H 96 08/28/25 04:00 36.3 C L 104 H 20 118/78 88 L O2 Del Method O2 Flow Rate 08/28/25 11:35 Room Air 08/28/25 08:39 Room Air 08/28/25 07:35 Nasal Cannula 2 08/28/25 07:20 Nasal Cannula 08/28/25 04:15 Nasal Cannula 08/28/25 04:00 Room Air Laboratory Results Short CBC 08/28/25 Range/Units 07:19 WBC 16.91 H (4.8-10.8) K/ul Hgb 11.9 L (14.0-18.0) g/dl Hct 34.2 L (42.0-52.0) % Plt Count 190 (130-400) K/uL BMP 08/28/25 07:19 Sodium 139 Potassium 4.5 Chloride 107 Carbon Dioxide 28 BUN 15 Creatinine 0.90 Glucose 115 H Calcium 8.6
[2025-08-28] MEDS: FAMOTIDINE 20 MG TAB PO PRN (20:15)
[2025-08-29 07:34] LABS: Hematocrit (blood only) 31.8 % (42.0-52.0); Hemoglobin 10.9 g/dl (14.0-18.0); Mean Corpuscular Hemoglobin 31.7 pg (25.0-34.0); Mean Corpuscular Volume 92.4 fL (80.0-100.0); Platelet Count 164 K/uL (130-400); RDW Standard Deviation 40.9 fL (36.4-46.3); Red Blood Count 3.44 M/uL (4.70-6.10); White Blood Count 13.97 K/ul (4.8-10.8)
[2025-08-29 07:50] LABS: Anion Gap 6.0 (3-11); Blood Urea Nitrogen 15.0 mg/dl (6-23); Calcium 9.0 mg/dl (8.6-10.3); Carbon Dioxide 29.0 mmol/L (21-32); Chloride 103.0 mmol/L (98-107); Creatinine Clr Calc Pharmacy 93.7 ml/min; Glucose 100.0 mg/dl (70-99(Fasting)); Potassium 4.3 mmol/L (3.5-5.1); Sodium 138.0 mmol/L (136-145)
--- NOTE | 2025-08-29 09:56 | Orthopedic Progress Note ---
Date of Service August 29, 2025 Assessment & Plan (1) Multilevel lumbosacral spondylosis with radiculopathy: Plan: Julio is postoperative day 2 status post revision decompression and fusion L2-S1. Will continue with physical therapy and ambulation. DVT prophylaxis is in the form teds and SCDs. Work on aggressive bowel regimen. Maintain KWAME drain. Anticipate discharge home tomorrow Admission and Anticipated Discharge Date Admission Date: August 27, 2025 Subjective Julio is postoperative day 2 status post revision decompression and fusion L2-S1. Leg symptoms are greatly improved. KWAME drain output last shift was 60 cc. Yesterday in physical therapy ambulate 175 feet plus the hallways. No new complaints. Review of Systems Review of Systems: All systems reviewed & are unremarkable except as noted in HPI & below Physical Exam Physical Exam: He is resting in bed in no acute distress he has been examined by Dr. León as well Alert and oriented x 3 Lumbar dressing is clean dry intact with functioning KWAME drain strength intact bilateral lower extremities Results & Data Vital Signs (Past 12 Hours) Vital Signs Temp Pulse Resp BP Pulse Ox O2 Del Method 08/29/25 07:20 Room Air 08/29/25 07:07 36.6 C 89 18 150/89 H 95 Room Air 08/28/25 23:31 36.4 C L 92 H 16 153/69 H 95 Room Air Queries Orthopedic Spine Acute Posthemorrhagic Anemia: Yes Obesity: Yes
--- NOTE | 2025-08-29 14:40 | Hospitalist Progress Note ---
Date of Service August 29, 2025 Assessment & Plan (1) Multilevel lumbosacral spondylosis with radiculopathy: Plan: Lumbar spondylosis with radiculopathy Lumbar spinal stenosis S/P revision decompression/fusion surgery of lumbar spine by Dr. 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 DVT Px: SCDs per surgery CODE STATUS Full code Admission and Anticipated Discharge Date Admission Date: August 27, 2025 Subjective Patient is seen and examined at bedside Back pain is controlled with medications Ambulating in hallway with no issues Denies any chest pain, dyspnea, nausea, vomiting, abdominal pain Review of Systems Review of Systems: All systems reviewed & are unremarkable except as noted in Subjective Physical Exam Physical Exam: Physical Exam: Vitals signs as noted above General Appearance:Morbidly obese, no apparent distress Head: normocephalic, Atraumatic Eyes: normal inspection, EOMI Neck: supple, Trachea midline Respiratory/Chest: Normal breath sounds, CTA, No accessory muscle use Cardiovascular: S1, S2, No murmur Abdomen/GI:Soft, Non tender, Bowel sounds present Back: +Post surgical dressing,+drain Extremities/Musculoskeletal:normal inspection, no edema Neurologic/Psych:AAOX3, grossly no focal neurological deficits Skin: normal color, warm Results & Data Results & Data Vital Signs (Past 12 Hours) Vital Signs Temp Pulse Resp BP Pulse Ox O2 Del Method 08/29/25 07:20 Room Air 08/29/25 07:07 36.6 C 89 18 150/89 H 95 Room Air Laboratory Results Short CBC 08/29/25 Range/Units 06:55 WBC 13.97 H (4.8-10.8) K/ul Hgb 10.9 L (14.0-18.0) g/dl Hct 31.8 L (42.0-52.0) % Plt Count 164 (130-400) K/uL BMP 08/29/25 06:55 Sodium 138 Potassium 4.3 Chloride 103 Carbon Dioxide 29 BUN 15 Creatinine 0.83 Glucose 100 H Calcium 9.0
[2025-08-30] MEDS ORDERED: REMOVE TRANSDERM-SCOP PATCH ONE (06:00)
[2025-08-30 07:10] VITALS: BP 138/80; PULSE 94; RESP 18; TEMP 97.5; O2SAT 94
[2025-08-30 08:18] LABS: Hematocrit (blood only) 30.9 % (42.0-52.0); Hemoglobin 11.0 g/dl (14.0-18.0); Mean Corpuscular Hemoglobin 33.0 pg (25.0-34.0); Mean Corpuscular Volume 92.8 fL (80.0-100.0); Platelet Count 163 K/uL (130-400); RDW Standard Deviation 40.3 fL (36.4-46.3); Red Blood Count 3.33 M/uL (4.70-6.10); White Blood Count 15.69 K/ul (4.8-10.8)
[2025-08-30 08:34] LABS: Anion Gap 6.0 (3-11); Blood Urea Nitrogen 17.0 mg/dl (6-23); Calcium 9.2 mg/dl (8.6-10.3); Carbon Dioxide 29.0 mmol/L (21-32); Chloride 102.0 mmol/L (98-107); Creatinine Clr Calc Pharmacy 98.4 ml/min; Glucose 107.0 mg/dl (70-99(Fasting)); Potassium 4.0 mmol/L (3.5-5.1); Sodium 137.0 mmol/L (136-145)
--- NOTE | 2025-08-30 09:41 | Discharge Summary ---
Date of Service August 30, 2025 Admission HPI Per Admitting Provider This is a 70-year-old male who presents with chronic persistent back and leg pain after failing course of nonoperative care is here for surgical invention. Principal Diagnosis Lumbar spondylosis with radiculopathy Discharge Data Allergies Allergy/AdvReac Type Severity Reaction Status Date / Time amoxicillin Allergy Rash Verified 08/27/25 08:22 morphine AdvReac Mild I GOT REAL Verified 08/27/25 08:22 HOT Consultations 08/27/25 16:20 Consult Hospitalist Routine Procedures Performed Operation Date: 08/27/25 10:05 Actual Procedures p L2-L3 Decompression, L2-S1 Fusion, L3-S1 Revision(Not Applicable) - Jono León DO Ordered Studies 08/27/25 10:05 FL lumbar spine 2-3V Routine Hospital Course (1) Multilevel lumbosacral spondylosis with radiculopathy: Patient went lumbar decompression fusion tolerated this well was taken to orthopedic for postoperative. Postop he progressed appropriately. Tolerating physical therapy. Improvement of his back and leg pain. KWAME drain decreasing appropriately. Subsidy discharged home. Discharge orders and instructions from the chart for further review. Total Time Total Time Spent Total Time Spent (In Minutes): 20 minutes Discharge Plan Discharge Items Patient Disposition: Home - Self-Care Reason For Visit: Lumbar Disc Disease with Radiculopathy, Other Spon Discharge Diagnosis: Lumbar spondylosis with radiculopathy Activity: As commented below Non-emergency contact: Primary Care Provider Call non-emergency contact if: you have any medication questions Follow-up/Referrals: Alyson Weber PA-C [Primary Care Provider] - Diet: Regular Addtl Attending Provider Instructions: ACTIVITY RECOMMENDATIONS: SELF CARE INSTRUCTIONS AFTER THORACIC/LUMBAR FUSIONS 1. You may walk to your tolerance. It is good exercise for your legs and back. Expect some back and intermittent leg aches and pains. 2. You may perform "counter-top" level activities (make a sandwich, leyla with a project, etc.). 3. No bending or lifting of more than 10 pounds or back twisting of any nature (roll like a log when turning in bed). 4. You may ride in a car for 20-30 minutes at a time. No driving until after your first visit with your doctor. 5. Frequent changes of position and restricting sitting to 30 minutes at a time will help limit the amount of back spasms and stiffness you may experience. 6. You may discontinue the use of ambulatory aids (cane, crutches, etc.) once your strength and confidence allow. 7. You may drilling fluids specialist the shower and let water strike your incision when you arrive home at least once daily. Do not take a tub bath, sit in a hot tub or go into a swimming pool until after your first recheck in the office. 8. You may resume previous diet. SPECIAL CARE INSTRUCTIONS: VERY IMPORTANT TO READ AND REVIEW A. Your surgical incision has been closed with a cosmetic suture under the skin that will dissolve in about 6 weeks. In 14 days, you can use a pair of clean scissors and cut the suture that is left outside of the skin at the ends of your incision. 1. The small skin tapes can be removed 7 days after surgery if they have not fallen off by that point. 2. You may keep the wound open to air as much as possible to promote healing after post-op day number 5 unless told otherwise by your doctor. 3. If you think the wound looks like it is becoming infected (redness or worsening drainage) and/or you are experiencing fever, chill or worsening back pain and muscle spasms, contact the office so that we may evaluate you as soon as possible. B. Complications are uncommon, but please contact us if you have any signs or symptoms of: 1. wound infection (fever higher than 102.5 degrees F, redness, separation of wound, drainage, or increasing pain from the incision) 2. blood clots in legs (pain, swelling, redness and warmth in legs) 3. urinary tract infection (fever higher than 102.5 degrees F, burning upon urination or increased frequency of urination) 4. nerve problems (inability to walk on your toes or heels, numbness, loss of bowel or bladder control) 5. any other symptoms that concern you C. Please call the office at if you have any concerns or questions about your operation or recovery. D. No smoking! Smoking drastically decreases the chance of a solid fusion. E. Do not take any anti-inflammatory medications (Indocin, Advil, Motrin, Aspirin, Naprosyn, etc.) as these may inhibit the chance of a solid fusion. T ylenol is okay to take for pain. MANAGING PAIN AFTER SPINAL SURGERY 1. Narcotic medication is intended for short-term use and will be provided for surgical pain. Surgical pain usually lasts for a period of 4-6 weeks. Narcotic medication includes Percocet, Vicodin, Darvocet, Tylenol #3 or Lortab. 2. Longer-term pain is more appropriately treated with non-narcotic medication such as Tylenol ES. 3. Muscle spasm is not appropriately treated with narcotics. Muscle relaxers such as Soma, Flexeril or Skelaxin can be used along with Tylenol ES. 4. Remember that we all live with some "aches and pains". This is not unusual or uncommon after an injury or as we get older. a. Back pain is expected and may include muscle spasms for 4 to 6 weeks after surgery. The pain should gradually improve. If the pain worsens for no apparent reason, please contact the office. b. Intermittent leg pain may also be experienced and should not be concerned about unless it worsens for no apparent reason. If so, please contact the office. 5. We will provide appropriate medication within the normal guidelines of their prescribed use. We will also be very cautious and aware of potential abuse and extended duration of patients' medication needs. a. Pain medications are for your comfort and to assist with sleep and rest so that the tissue can heal. They are not provided in order to return to normal activity and should not be used through the day. To do so or worsening pain at night can result from ongoing tissue damage and development of tolerance to the prescribed medicine. 6. Please allow 2-3 days to process refills. Prescriptions will not be mailed but must be picked up at the office. FOLLOW UP VISIT: Keep your scheduled follow-up appointment. Any questions, please call the office at . Pending Studies at Discharge: No Stand-Alone Forms: My [place], Smoking Cessation Medications and DC Order Prescriptions: New tramadol 50 mg tablet 50 mg PO Q6H PRN (Reason: pain, moderate) Qty: 30 0RF oxycodone 5 mg tablet 5 mg PO Q6H PRN (Reason: pain) Qty: 30 0RF Rx Instructions: Oxycodone for severe pain tramadol for moderate pain Continued celecoxib [Celebrex] 200 mg Capsule 200 mg PO BID PRN (Reason: Pain) ascorbic acid (vitamin C) [Vitamin C] 1,000 mg Tablet 1,000 mg PO QAM simvastatin 20 mg Tablet 20 mg PO QAM gabapentin 300 mg Capsule 600 mg PO HS cholecalciferol (vitamin D3) [Vitamin D3] 125 mcg (5,000 unit) Tablet 125 mcg PO QAM omeprazole 20 mg Tablet,Disintegrat, Delay Rel 20 mg PO QAM doxycycline hyclate 100 mg 100 mg PO BID benzonatate 200 mg tablet 200 mg PO TID Discharge Orders: Discharge Order (Routine); Ordered 08/30/25 Ordered By: Jono León Admission Data Admit Date/Time: 08/27/25 14:07 Attending Provider: Jono León Admit Provider: Jono León Primary Care Provider: Alyson Weber. Other Providers: Annalee Burleson
--- NOTE | 2025-08-30 10:50 | Hospitalist Progress Note ---
Date of Service August 30, 2025 Assessment & Plan (1) Multilevel lumbosacral spondylosis with radiculopathy: Plan: Lumbar spondylosis with radiculopathy Lumbar spinal stenosis S/P revision decompression/fusion surgery of lumbar spine by Dr. León on 08/27/2025 Postoperative acute blood loss anemia: Hemoglobin 10.9 today Continue bowel regimen to prevent constipation Activity & DVT Px, pain control and wound care as per Primary team Continue IV fluids as blood pressure relatively low Incentive spirometry Continue PT OT No indication for blood transfusion Leukocytosis likely due to steroids--trending down Monitor KWAME drain output Likely discharge today Limit nsaids to prevent bleeding risk. 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 Denies any chest pain, dyspnea, nausea, vomiting, abdominal pain Physical Exam Physical Exam: General Appearance:Morbidly obese, no apparent distress Head: normocephalic, Atraumatic Eyes: normal inspection, EOMI Neck: supple, Trachea midline Respiratory/Chest: Normal breath sounds, CTA, No accessory muscle use Cardiovascular: S1, S2, No murmur Abdomen/GI:Soft, Non tender, Bowel sounds present Back: +Post surgical dressing,+drain Extremities/Musculoskeletal:normal inspection, no edema Neurologic/Psych:AAOX3, grossly no focal neurological deficits Skin: normal color, warm Results & Data Results & Data Vital Signs (Past 12 Hours) Vital Signs Temp Pulse Resp BP Pulse Ox O2 Del Method 08/30/25 07:10 36.4 C L 94 H 18 138/80 94 Room Air
== END 2025-08-30 13:53 | disposition home health service (06) | DRG 427 ==
LOC: ASU 08:20 → 3N 14:07